=== PATIENT | male | born 1975 | race American Indian/Alaskan Native ===

== ENCOUNTER 2019-04-28 13:52 | Emergency (ER) | payer SELFPAY ==
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
[2019-04-28 14:14] VITALS: BP 128/82
--- NOTE | 2019-04-28 14:44 | XRay Report ---
Right hand-3 views INDICATION: MCP pain, swelling, redness, possible infection. COMPARISON: None. IMPRESSION: Mild soft tissue swelling about the hand especially over the ulnar aspect. No acute frac ture, subcutaneous gas, or malalignment. No significant DJD. Signer Name: Gabriele Harry MD Signed: 04/28/2019 2:40 PM Workstation Name: [id number]
[2019-04-28 14:51] LABS: Hematocrit 44.1 % (35.5-45.6); Hemoglobin 14.7 gm/dl (11.8-15.2); Mean Corpuscular HGB Conc 33 % (32-34); Mean Corpuscular Volume 90 fl (84-94); Platelet Count 268 K/mm3 (140-440); Red Blood Count 4.88 M/mm3 (3.65-5.03); Red Cell Distribution Width 13.5 % (13.2-15.2)
[2019-04-28 15:11] LABS: BUN/Creatinine Ratio 9; Blood Urea Nitrogen 11 mg/dL (9-20); Calcium 9.1 mg/dL (8.4-10.2); Hemolysis Index 10
[2019-04-28] MEDS ORDERED: IBUPROFEN 800 MG TAB PO ONE (16:03)
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
== END 2019-04-28 16:42 | disposition home or self-care (01) ==
LOC: ED 13:52
DX: L03.113 Cellulitis of right upper limb (principal); F17.200 Nicotine dependence, unspecified, uncomplicated; F12.10 Cannabis abuse, uncomplicated; Z79.899 Other long term (current) drug therapy
CPT/HCPCS: 36415; 80048; 85027